=== PATIENT | male | born 1950 | race African-American/Black ===

== ENCOUNTER 2021-01-19 21:35 | Inpatient (IN) | payer MEDICARE, OTHER ==
[~2021-01-19] VITALS: Ht 180.3 cm; Wt 70.3 kg
[~2021-01-19 21:35] MED LIST: ASPI-867 PO; ATOR20TA65 PO; CARV12.545 PO; CLOP75TA33 PO; HYDR-3512 PO; HYDR500C PO; LISI20TA31 PO
[2021-01-19] MEDS ORDERED: SODIUM CHLORIDE 0.9% 1,000 ML IV ONE (22:00)
[2021-01-19 23:05] LABS: CHLORIDE 97 mEq/L (98-107)
[2021-01-20 00:04] LABS: HEMOGLOBIN. 7.2 g/dL (14.0-18.0); MEAN CORPUSCULAR HEMOGLOBIN 29.5 pg (28.0-32.0); MEAN PLATELET VOLUME 10.6 fl (7.4-10.4); RED BLOOD CELL COUNT 2.44 mill/uL (4.7-6.1); RED CELL DISTRIBUTION WIDTH 17.4 % (11.6-14.6)
[2021-01-20 00:24] LABS: PLATELET 7 x1000/uL (130-400)
[2021-01-20] MEDS ORDERED: PANTOPRAZOLE SODIUM 40 MG/VIAL IV ONE (00:30)
[2021-01-20] MEDS ORDERED: TRANEXAMIC ACID 1,000 MG/10 ML IV ONE (00:45)
[2021-01-20 01:23] LABS: INR 1.1; PROTHROMBIN TIME 11.9 sec (9.6-11.0)
[2021-01-20] MEDS ORDERED: IOHEXOL-300 100 ML BOTTLE ONE (01:42)
[2021-01-20 01:56] LABS: PLATELET ESTIMATE MARKEDLY DECREASED
[2021-01-20] MEDS ORDERED: ONDANSETRON HCL 4MG/2ML INJ IV PRN ×2 (08:15→13:30)
[2021-01-20] MEDS ORDERED: POTASSIUM CHLORIDE INJ 40 MEQ in DEXT 5% WATER 250 ML IV ONE (09:00)
[2021-01-20 10:01] LABS: HEMATOCRIT. 22.7 % (42.0-52.0); HEMOGLOBIN. 7.6 g/dL (14.0-18.0); MEAN CORPUSCULAR HEMOGLOBIN 30.1 pg (28.0-32.0); MEAN CORPUSCULAR VOLUME 90.2 fL (80.0-94.0); MEAN PLATELET VOLUME 9.4 fl (7.4-10.4); RED BLOOD CELL COUNT 2.52 mill/uL (4.7-6.1); RED CELL DISTRIBUTION WIDTH 17.2 % (11.6-14.6)
[2021-01-20] MEDS: PANTOPRAZOLE SODIUM 40 MG/VIAL IV SCH ×2 (10:01→21:41)
[2021-01-20] MEDS: SODIUM CHLORIDE 0.9% 1,000 ML IV SCH ×2 (10:01→21:35)
[2021-01-20 10:06] LABS: PLATELET 11 x1000/uL (130-400)
[2021-01-20 11:15] VITALS: BP 117/70
[2021-01-20 11:39] LABS: NUCLEATED RED BLOOD CELLS 2 /100 WBC
[2021-01-20 11:44] LABS: PLATELET ESTIMATE MARKEDLY DECREASED
[2021-01-20 12:00] VITALS: BP 117/70
[2021-01-20] MEDS ORDERED: INFLUENZA VACCINE 05/PF 0.5 ML SYRINGE IM ONE (14:15)
[2021-01-20 14:21] LABS: TOTAL IRON BINDING CAPACITY 150 ug/dL (250-450)
[2021-01-20] MEDS ORDERED: METRONIDAZOLE 500 MG PREMIX 100 ML IV SCH (14:30)
[2021-01-20 14:37] LABS: FOLIC ACID (FOLATE) SERUM 9.5 ng/mL (>5.38)
[2021-01-20] MEDS: METRONIDAZOLE 500MG TABLET PO SCH ×2 (14:47→21:43)
[2021-01-20 16:00] VITALS: BP 124/62
[2021-01-20] MEDS: CEFEPIME 1,000 MG in DEXTROSE 5% WATER 50 ML IV SCH (16:09)
[2021-01-20] MEDS ORDERED: PANTOPRAZOLE SODIUM 40 MG/VIAL IV SCH (17:00)
[2021-01-20 20:00] VITALS: BP 100/75
[2021-01-21] VITALS (8 sets, daily range): BP systolic 98–133; BP diastolic 54–78
[2021-01-21] MEDS: METRONIDAZOLE 500MG TABLET PO SCH ×3 (06:00→21:14)
[2021-01-21 06:15] LABS: CHLORIDE 103 mEq/L (98-107)
[2021-01-21 06:43] LABS: HEMATOCRIT. 22.7 % (42.0-52.0); HEMOGLOBIN. 7.6 g/dL (14.0-18.0); MEAN CORPUSCULAR HEMOGLOBIN 30.2 pg (28.0-32.0); MEAN CORPUSCULAR VOLUME 90.3 fL (80.0-94.0); MEAN PLATELET VOLUME 8.7 fl (7.4-10.4); RED BLOOD CELL COUNT 2.51 mill/uL (4.7-6.1)
[2021-01-21] MEDS: IPRATROPIUM/ALBUTEROL 0.5-3(2.5)MG/3ML NEB HHN SCH ×4 (07:39→21:08)
[2021-01-21] MEDS: TAMSULOSIN HCL 0.4MG SR CAPSULE PO SCH (09:00)
[2021-01-21] MEDS: CEFEPIME 1,000 MG in DEXTROSE 5% WATER 50 ML IV SCH ×2 (09:11→17:08)
[2021-01-21] MEDS: PANTOPRAZOLE SODIUM 40 MG/VIAL IV SCH ×2 (09:12→21:14)
[2021-01-21 10:00] LABS: PLATELET ESTIMATE MARKEDLY DECREASED
[2021-01-21 10:01] LABS: PLATELET 28 x1000/uL (130-400)
[2021-01-21 12:40] LABS: CLARITY URINE CLEAR (CLEAR); COLOR URINE YELLOW (YELLOW); KETONES URINE NEGATIVE (NEGATIVE); LEUKOCYTE ESTERASE URINE NEGATIVE (NEGATIVE); NITRITE URINE NEGATIVE (NEGATIVE); OCCULT BLOOD URINE NEGATIVE (NEGATIVE); PH URINE 5.5 (4.5-8.0); PROTEIN URINE 1+ (NEGATIVE); UROBILINOGEN URINE 0.2 E.U./dL (0.2-1.0)
[2021-01-21] MEDS: SODIUM CHLORIDE 0.9% 1,000 ML IV SCH (14:16)
[2021-01-21] MEDS ORDERED: DIATR MEGLU/DIATRIZOATE SOLN 30ML PO SCH (16:00)
[2021-01-21] MEDS ORDERED: DIGOXIN 500MCG/2ML AMP IV PRN (18:30)
[2021-01-21] MEDS ORDERED: IOHEXOL-300 100 ML BOTTLE ONE (23:26)
[2021-01-22] VITALS (20 sets, daily range): BP systolic 97–125; BP diastolic 59–97
[2021-01-22] MEDS: IPRATROPIUM/ALBUTEROL 0.5-3(2.5)MG/3ML NEB HHN SCH ×7 (00:42→20:26)
[2021-01-22] MEDS ORDERED: DILTIAZEM HCL 125 MG in DEXT 5% WATER 100 ML IV PRN ×2 (01:00→12:36)
[2021-01-22] MEDS: SODIUM CHLORIDE 0.9% 1,000 ML IV SCH ×2 (02:09→13:24)
[2021-01-22] MEDS: CEFEPIME 1,000 MG in DEXTROSE 5% WATER 50 ML IV SCH ×2 (05:04→17:01)
[2021-01-22] MEDS: METRONIDAZOLE 500MG TABLET PO SCH ×3 (05:07→21:35)
[2021-01-22 06:49] LABS: HEMATOCRIT. 24.7 % (42.0-52.0); HEMOGLOBIN. 8.4 g/dL (14.0-18.0); MEAN CORPUSCULAR HEMOGLOBIN 29.9 pg (28.0-32.0); MEAN CORPUSCULAR VOLUME 88.6 fL (80.0-94.0); MEAN PLATELET VOLUME 9.4 fl (7.4-10.4); RED BLOOD CELL COUNT 2.79 mill/uL (4.7-6.1); RED CELL DISTRIBUTION WIDTH 16.5 % (11.6-14.6)
[2021-01-22 06:50] LABS: CHLORIDE 107 mEq/L (98-107)
[2021-01-22 08:13] LABS: PLATELET 18 x1000/uL (130-400)
[2021-01-22] MEDS: PANTOPRAZOLE SODIUM 40 MG/VIAL IV SCH ×2 (08:24→21:35)
[2021-01-22] MEDS: TAMSULOSIN HCL 0.4MG SR CAPSULE PO SCH (08:24)
[2021-01-22] MEDS ORDERED: POTASSIUM CHLORIDE INJ 40 MEQ in DEXT 5% WATER 250 ML IV NR (09:00)
[2021-01-22 10:10] LABS: NUCLEATED RED BLOOD CELLS 1 /100 WBC
[2021-01-22 10:11] LABS: PLATELET ESTIMATE MARKEDLY DECREASED
[2021-01-22] MEDS: AMIODARONE HCL 900 MG in DEXT 5% WATER 500 ML IV PRN (15:54)
[2021-01-22] MEDS ORDERED: AMIODARONE HCL 150 MG in DEXT 5% WATER 97 ML IV NR (16:00)
[2021-01-23] VITALS (12 sets, daily range): BP systolic 105–138; BP diastolic 58–76
[2021-01-23] MEDS: IPRATROPIUM/ALBUTEROL 0.5-3(2.5)MG/3ML NEB HHN SCH ×5 (01:52→19:51)
[2021-01-23] MEDS: SODIUM CHLORIDE 0.9% 1,000 ML IV SCH ×2 (02:54→16:10)
[2021-01-23] MEDS: METRONIDAZOLE 500MG TABLET PO SCH ×3 (05:01→21:44)
[2021-01-23] MEDS: CEFEPIME 1,000 MG in DEXTROSE 5% WATER 50 ML IV SCH ×2 (05:01→17:04)
[2021-01-23 07:46] LABS: CHLORIDE 110 mEq/L (98-107)
[2021-01-23 08:13] LABS: HEMATOCRIT. 22.5 % (42.0-52.0); HEMOGLOBIN. 7.6 g/dL (14.0-18.0); MEAN CORPUSCULAR HEMOGLOBIN 29.9 pg (28.0-32.0); MEAN CORPUSCULAR VOLUME 88.9 fL (80.0-94.0); MEAN PLATELET VOLUME 8.5 fl (7.4-10.4); RED BLOOD CELL COUNT 2.54 mill/uL (4.7-6.1); RED CELL DISTRIBUTION WIDTH 16.5 % (11.6-14.6)
[2021-01-23] MEDS: PANTOPRAZOLE SODIUM 40 MG/VIAL IV SCH ×2 (08:52→21:44)
[2021-01-23] MEDS: TAMSULOSIN HCL 0.4MG SR CAPSULE PO SCH (08:52)
[2021-01-23] MEDS ORDERED: POTASSIUM CHLORIDE 20MEQ TABLET SR PO SCH (10:00)
[2021-01-23 11:24] LABS: PLATELET ESTIMATE MARKEDLY DECREASED
[2021-01-23 11:25] LABS: PLATELET 18 x1000/uL (130-400)
[2021-01-23] MEDS: AMIODARONE HCL 900 MG in DEXT 5% WATER 500 ML IV PRN (14:39)
[2021-01-24] VITALS (17 sets, daily range): BP systolic 104–128; BP diastolic 43–86
[2021-01-24] MEDS: IPRATROPIUM/ALBUTEROL 0.5-3(2.5)MG/3ML NEB HHN SCH ×6 (00:04→16:00)
[2021-01-24] MEDS: SODIUM CHLORIDE 0.9% 1,000 ML IV SCH ×2 (05:16→18:55)
[2021-01-24] MEDS: METRONIDAZOLE 500MG TABLET PO SCH ×3 (05:16→21:13)
[2021-01-24] MEDS: CEFEPIME 1,000 MG in DEXTROSE 5% WATER 50 ML IV SCH ×2 (05:16→17:38)
[2021-01-24 05:51] LABS: INR 1.2; PARTIAL THROMBOPLASTIN TIME 30.7 sec (23.4-31.0); PROTHROMBIN TIME 12.3 sec (9.6-11.0)
[2021-01-24 05:58] LABS: CHLORIDE 112 mEq/L (98-107)
[2021-01-24 06:14] LABS: PHOSPHORUS 2.1 mg/dL (2.5-4.9)
[2021-01-24 06:18] LABS: HEMATOCRIT. 23.4 % (42.0-52.0); HEMOGLOBIN. 7.7 g/dL (14.0-18.0); MEAN CORPUSCULAR HEMOGLOBIN 29.3 pg (28.0-32.0); MEAN CORPUSCULAR VOLUME 88.5 fL (80.0-94.0); MEAN PLATELET VOLUME 9.1 fl (7.4-10.4); RED BLOOD CELL COUNT 2.64 mill/uL (4.7-6.1); RED CELL DISTRIBUTION WIDTH 16.9 % (11.6-14.6)
[2021-01-24] MEDS: PANTOPRAZOLE SODIUM 40 MG/VIAL IV SCH ×2 (08:46→21:13)
[2021-01-24] MEDS: TAMSULOSIN HCL 0.4MG SR CAPSULE PO SCH (08:46)
[2021-01-24] MEDS ORDERED: POTASSIUM PHOS,M-BASIC-D-BASIC 10 MMOL in DEXT 5% WATER 246.6667 ML IV SCH (14:00)
[2021-01-24 15:52] LABS: PLATELET 14 x1000/uL (130-400); PLATELET ESTIMATE MARKEDLY DECREASED
[2021-01-24] MEDS ORDERED: HYDROCODONE/ACETAMINOPHEN 10/325MG TABLET PO PRN (20:45)
[2021-01-24] MEDS ORDERED: NALOXONE HCL 0.4MG/ML VIAL IV PRN (21:00)
[2021-01-24] MEDS ORDERED: PHYTONADIONE 10MG/ML AMP SUBCUT SCH (21:00)
[2021-01-24] MEDS: TOTAL PARENTERAL NUTRITION 1,800 ML IV SCH (21:12)
[2021-01-24] MEDS: AMIODARONE HCL 900 MG in DEXT 5% WATER 500 ML IV PRN (21:50)
[2021-01-25] VITALS (21 sets, daily range): BP systolic 106–129; BP diastolic 60–76
[2021-01-25] MEDS ORDERED: BLOOD SUGAR DIAGNOSTIC STRIP TEST SCH
[2021-01-25] MEDS ORDERED: DEXTROSE 50% WATER 50ML SYRINGE IV PRN (04:30)
[2021-01-25] MEDS: METRONIDAZOLE 500MG TABLET PO SCH ×3 (05:22→21:23)
[2021-01-25] MEDS: CEFEPIME 1,000 MG in DEXTROSE 5% WATER 50 ML IV SCH (05:22)
[2021-01-25] MEDS: INSULIN LISPRO 100 UNITS/ML SUBCUT SCH ×3 (05:23→18:11)
[2021-01-25 05:32] LABS: HEMATOCRIT. 21.7 % (42.0-52.0); HEMOGLOBIN. 7.1 g/dL (14.0-18.0); MEAN CORPUSCULAR HEMOGLOBIN 29.8 pg (28.0-32.0); MEAN CORPUSCULAR VOLUME 90.8 fL (80.0-94.0); MEAN PLATELET VOLUME 9.2 fl (7.4-10.4); RED BLOOD CELL COUNT 2.39 mill/uL (4.7-6.1); RED CELL DISTRIBUTION WIDTH 17.8 % (11.6-14.6)
[2021-01-25 06:28] LABS: CHLORIDE 111 mEq/L (98-107)
[2021-01-25 06:38] LABS: PLATELET 12 x1000/uL (130-400)
[2021-01-25] MEDS: BLOOD SUGAR DIAGNOSTIC STRIP TEST SCH ×4 (07:30→21:23)
[2021-01-25] MEDS: IPRATROPIUM/ALBUTEROL 0.5-3(2.5)MG/3ML NEB HHN SCH ×3 (08:05→15:27)
[2021-01-25] MEDS: PANTOPRAZOLE SODIUM 40 MG/VIAL IV SCH ×2 (09:54→21:22)
[2021-01-25] MEDS: TAMSULOSIN HCL 0.4MG SR CAPSULE PO SCH (09:54)
[2021-01-25 14:14] LABS: NUCLEATED RED BLOOD CELLS 1 /100 WBC; PLATELET ESTIMATE MARKEDLY DECREASED
[2021-01-25] MEDS: FAT EMULSIONS 500 ML IV SCH (21:23)
[2021-01-25] MEDS: TOTAL PARENTERAL NUTRITION 1,800 ML IV SCH (21:26)
[2021-01-25 23:07] LABS: HEMATOCRIT 24.7 % (42.0-52.0); HEMOGLOBIN 8.3 g/dL (14.0-18.0)
[2021-01-25 23:18] LABS: INR 1.1; PROTHROMBIN TIME 11.9 sec (9.6-11.0)
[2021-01-26] VITALS (13 sets, daily range): BP systolic 93–130; BP diastolic 58–96
[2021-01-26] MEDS: INSULIN LISPRO 100 UNITS/ML SUBCUT SCH ×4 (00:24→18:15)
[2021-01-26] MEDS: AMIODARONE HCL 900 MG in DEXT 5% WATER 500 ML IV PRN (02:38)
[2021-01-26] MEDS: CEFEPIME 1,000 MG in DEXTROSE 5% WATER 50 ML IV SCH ×2 (05:23→18:14)
[2021-01-26] MEDS: METRONIDAZOLE 500MG TABLET PO SCH ×3 (05:23→20:45)
[2021-01-26] MEDS: BLOOD SUGAR DIAGNOSTIC STRIP TEST SCH ×3 (05:24→18:00)
[2021-01-26 05:33] LABS: CHLORIDE 109 mEq/L (98-107)
[2021-01-26] MEDS: IPRATROPIUM/ALBUTEROL 0.5-3(2.5)MG/3ML NEB HHN SCH ×4 (07:50→20:58)
[2021-01-26 08:33] LABS: HEMATOCRIT. 24.4 % (42.0-52.0); HEMOGLOBIN. 8.1 g/dL (14.0-18.0); MEAN CORPUSCULAR HEMOGLOBIN 29.9 pg (28.0-32.0); MEAN CORPUSCULAR VOLUME 90.5 fL (80.0-94.0); MEAN PLATELET VOLUME 7.9 fl (7.4-10.4); RED BLOOD CELL COUNT 2.69 mill/uL (4.7-6.1); RED CELL DISTRIBUTION WIDTH 17.1 % (11.6-14.6)
[2021-01-26 08:44] LABS: PLATELET 35 x1000/uL (130-400)
[2021-01-26] MEDS: PANTOPRAZOLE SODIUM 40 MG/VIAL IV SCH ×2 (09:27→20:45)
[2021-01-26] MEDS: TAMSULOSIN HCL 0.4MG SR CAPSULE PO SCH (09:27)
[2021-01-26] MEDS: INSULIN GLARGINE UD 100 UNITS/ML SYR SUBCUT SCH ×2 (10:52→20:47)
[2021-01-26] MEDS ORDERED: BISACODYL 5MG TABLET PO SCH (11:45)
[2021-01-26] MEDS ORDERED: LACTULOSE 20G/30ML UDC PO SCH (11:45)
[2021-01-26 14:06] LABS: PLATELET ESTIMATE MARKEDLY DECREASED
[2021-01-26] MEDS: TOTAL PARENTERAL NUTRITION 1,800 ML IV SCH (20:47)
[2021-01-27] VITALS (17 sets, daily range): BP systolic 98–118; BP diastolic 59–77
[2021-01-27] MEDS: BLOOD SUGAR DIAGNOSTIC STRIP TEST SCH ×4 (00:03→17:49)
[2021-01-27] MEDS: INSULIN LISPRO 100 UNITS/ML SUBCUT SCH ×4 (00:04→18:00)
[2021-01-27] MEDS: IPRATROPIUM/ALBUTEROL 0.5-3(2.5)MG/3ML NEB HHN SCH ×6 (00:46→21:00)
[2021-01-27] MEDS: METRONIDAZOLE 500MG TABLET PO SCH ×3 (05:14→21:06)
[2021-01-27] MEDS: AMIODARONE HCL 900 MG in DEXT 5% WATER 500 ML IV PRN (05:14)
[2021-01-27] MEDS: CEFEPIME 1,000 MG in DEXTROSE 5% WATER 50 ML IV SCH ×2 (05:14→17:59)
[2021-01-27 06:20] LABS: HEMATOCRIT. 23.9 % (42.0-52.0); MEAN CORPUSCULAR VOLUME 89.3 fL (80.0-94.0); MEAN PLATELET VOLUME 8.9 fl (7.4-10.4); RED BLOOD CELL COUNT 2.68 mill/uL (4.7-6.1); RED CELL DISTRIBUTION WIDTH 17.3 % (11.6-14.6)
[2021-01-27 06:38] LABS: PLATELET 12 x1000/uL (130-400)
[2021-01-27 06:46] LABS: CHLORIDE 107 mEq/L (98-107)
[2021-01-27] MEDS: PANTOPRAZOLE SODIUM 40 MG/VIAL IV SCH ×2 (08:42→21:07)
[2021-01-27] MEDS: TAMSULOSIN HCL 0.4MG SR CAPSULE PO SCH (08:42)
[2021-01-27] MEDS: INSULIN GLARGINE UD 100 UNITS/ML SYR SUBCUT SCH ×2 (09:50→21:09)
[2021-01-27 10:40] LABS: NUCLEATED RED BLOOD CELLS 1 /100 WBC; PLATELET ESTIMATE MARKEDLY DECREASED
[2021-01-27] MEDS ORDERED: SORBITOL 70% SOLN 30ML PO NR (12:00)
[2021-01-27 20:35] LABS: HEMATOCRIT 23.8 % (42.0-52.0); HEMOGLOBIN 7.8 g/dL (14.0-18.0)
[2021-01-27 20:43] LABS: INR 1.1; PROTHROMBIN TIME 11.3 sec (9.6-11.0)
[2021-01-27] MEDS: TOTAL PARENTERAL NUTRITION 1,800 ML IV SCH (21:09)
[2021-01-27] MEDS: FAT EMULSIONS 500 ML IV SCH (21:10)
[2021-01-28] VITALS (15 sets, daily range): BP systolic 104–118; BP diastolic 60–72
[2021-01-28] MEDS: BLOOD SUGAR DIAGNOSTIC STRIP TEST SCH ×4 (00:24→17:52)
[2021-01-28] MEDS: INSULIN LISPRO 100 UNITS/ML SUBCUT SCH ×4 (00:25→18:08)
[2021-01-28] MEDS: IPRATROPIUM/ALBUTEROL 0.5-3(2.5)MG/3ML NEB HHN SCH ×6 (00:41→21:04)
[2021-01-28 07:26] LABS: HEMATOCRIT. 24.7 % (42.0-52.0); HEMOGLOBIN. 7.4 g/dL (14.0-18.0); MEAN CORPUSCULAR HEMOGLOBIN 30.5 pg (28.0-32.0); MEAN CORPUSCULAR VOLUME 102.1 fL (80.0-94.0); MEAN PLATELET VOLUME 8.7 fl (7.4-10.4); RED BLOOD CELL COUNT 2.42 mill/uL (4.7-6.1); RED CELL DISTRIBUTION WIDTH 19.8 % (11.6-14.6)
[2021-01-28 07:45] LABS: PLATELET 14 x1000/uL (130-400)
[2021-01-28] MEDS ORDERED: BLOOD SUGAR DIAGNOSTIC STRIP TEST SCH (09:00)
[2021-01-28 09:41] LABS: CHLORIDE 103 mEq/L (98-107)
[2021-01-28] MEDS: PANTOPRAZOLE SODIUM 40 MG/VIAL IV SCH ×2 (09:59→21:22)
[2021-01-28] MEDS: TAMSULOSIN HCL 0.4MG SR CAPSULE PO SCH (10:00)
[2021-01-28] MEDS: INSULIN GLARGINE UD 100 UNITS/ML SYR SUBCUT SCH ×2 (10:01→21:20)
[2021-01-28 13:57] LABS: PLATELET ESTIMATE MARKEDLY DECREASED
[2021-01-28] MEDS ORDERED: BISACODYL 10MG SUPP PR NR (15:30)
[2021-01-28] MEDS: METOCLOPRAMIDE HCL 10MG/2ML VIAL IV SCH ×2 (16:26→18:07)
[2021-01-28] MEDS: LACTULOSE 20G/30ML UDC PO SCH ×2 (16:26→21:22)
[2021-01-28] MEDS: ASCORBIC ACID 500 MG TABLET PO SCH (16:29)
[2021-01-28] MEDS: ZINC SULFATE 220 MG ( 50 ) CAPSULE PO SCH (16:29)
[2021-01-28 20:06] LABS: HEMATOCRIT 23.3 % (42.0-52.0); HEMOGLOBIN 7.8 g/dL (14.0-18.0)
[2021-01-28] MEDS: TOTAL PARENTERAL NUTRITION 1,800 ML IV SCH (21:20)
[2021-01-28] MEDS: AMIODARONE HCL 200 MG TABLET PO SCH (21:22)
[2021-01-29] VITALS (11 sets, daily range): BP systolic 98–125; BP diastolic 31–77
[2021-01-29] MEDS: METOCLOPRAMIDE HCL 10MG/2ML VIAL IV SCH ×4 (00:17→17:45)
[2021-01-29] MEDS: INSULIN LISPRO 100 UNITS/ML SUBCUT SCH ×4 (00:19→17:46)
[2021-01-29] MEDS: BLOOD SUGAR DIAGNOSTIC STRIP TEST SCH ×4 (00:19→17:42)
[2021-01-29] MEDS: IPRATROPIUM/ALBUTEROL 0.5-3(2.5)MG/3ML NEB HHN SCH ×5 (00:21→16:08)
[2021-01-29] MEDS: LACTULOSE 20G/30ML UDC PO SCH ×2 (05:20→13:12)
[2021-01-29 05:50] LABS: CHLORIDE 104 mEq/L (98-107)
[2021-01-29 08:10] LABS: HEMOGLOBIN. 7.6 g/dL (14.0-18.0); MEAN CORPUSCULAR VOLUME 87.9 fL (80.0-94.0); MEAN PLATELET VOLUME 7.2 fl (7.4-10.4); RED BLOOD CELL COUNT 2.61 mill/uL (4.7-6.1); RED CELL DISTRIBUTION WIDTH 16.8 % (11.6-14.6)
[2021-01-29] MEDS: TAMSULOSIN HCL 0.4MG SR CAPSULE PO SCH (09:48)
[2021-01-29] MEDS: ZINC SULFATE 220 MG ( 50 ) CAPSULE PO SCH (09:48)
[2021-01-29] MEDS: PANTOPRAZOLE SODIUM 40 MG/VIAL IV SCH ×2 (09:48→21:07)
[2021-01-29] MEDS: ASCORBIC ACID 500 MG TABLET PO SCH (09:48)
[2021-01-29] MEDS: AMIODARONE HCL 200 MG TABLET PO SCH ×2 (09:49→21:07)
[2021-01-29] MEDS: INSULIN GLARGINE UD 100 UNITS/ML SYR SUBCUT SCH (09:49)
[2021-01-29] MEDS ORDERED: BISACODYL 10MG SUPP PR NR (11:30)
[2021-01-29] MEDS ORDERED: MAGNESIUM CITRATE 300ML SOLUTION PO NR (12:30)
[2021-01-29 13:24] LABS: NUCLEATED RED BLOOD CELLS 1 /100 WBC
[2021-01-29 13:25] LABS: PLATELET ESTIMATE MARKEDLY DECREASED
[2021-01-29 13:26] LABS: PLATELET 21 x1000/uL (130-400)
== END 2021-01-29 18:45 | DRG 871 ==
LOC: ER 21:35 → EDBEDREQSVC 23:21 → EDBEDREQ 23:21 → EDBEDREQTM 23:21 → MICUSO 01-20 00:36 → EDBEDREQDT 01-20 00:40 → EDBEDREQSVC 01-20 00:40 → EDBEDREQTM 01-20 00:40 → 8WST 01-20 11:32 → 5EST 01-22 00:14
PROVIDERS: ADMIT Internal Medicine; ATTEND Internal Medicine
PROC: 30233N1 Transfusion of Nonautologous Red Blood Cells into Peripheral Vein, Percutaneous Approach (ICD-10-PCS; 2021-01-21)
PROC: 02HV33Z Insertion of Infusion Device into Superior Vena Cava, Percutaneous Approach (ICD-10-PCS; principal; 2021-01-24)
PROC: B548ZZA Ultrasonography of Superior Vena Cava, Guidance (ICD-10-PCS; 2021-01-24)
PROC: 30233R1 Transfusion of Nonautologous Platelets into Peripheral Vein, Percutaneous Approach (ICD-10-PCS; 2021-01-25)
DX: A41.9 Sepsis, unspecified organism (principal); K57.91 Diverticulosis of intestine, part unspecified, without perforation or abscess with bleeding; E43 Unspecified severe protein-calorie malnutrition; D61.818 Other pancytopenia; E87.1 Hypo-osmolality and hyponatremia; I50.22 Chronic systolic (congestive) heart failure; K56.600 Partial intestinal obstruction, unspecified as to cause; C92.00 Acute myeloblastic leukemia, not having achieved remission; J98.11 Atelectasis; K91.89 Other postprocedural complications and disorders of digestive system; C93.10 Chronic myelomonocytic leukemia not having achieved remission; D69.59 Other secondary thrombocytopenia; I11.0 Hypertensive heart disease with heart failure; I48.91 Unspecified atrial fibrillation; I49.3 Ventricular premature depolarization; E87.6 Hypokalemia; T45.1X5A Adverse effect of antineoplastic and immunosuppressive drugs, initial encounter; L89.156 Pressure-induced deep tissue damage of sacral region; L89.896 Pressure-induced deep tissue damage of other site; E11.9 Type 2 diabetes mellitus without complications; I25.10 Atherosclerotic heart disease of native coronary artery without angina pectoris; J44.9 Chronic obstructive pulmonary disease, unspecified; Z20.822 Contact with and (suspected) exposure to COVID-19; K52.9 Noninfective gastroenteritis and colitis, unspecified; K37 Unspecified appendicitis; Z87.891 Personal history of nicotine dependence; Z92.21 Personal history of antineoplastic chemotherapy; I25.2 Old myocardial infarction; Z95.810 Presence of automatic (implantable) cardiac defibrillator; Z79.891 Long term (current) use of opiate analgesic; Z79.899 Other long term (current) drug therapy; Z79.82 Long term (current) use of aspirin; Z79.02 Long term (current) use of antithrombotics/antiplatelets; Y92.89 Other specified places as the place of occurrence of the external cause; Z68.21 Body mass index [BMI] 21.0-21.9, adult
CPT/HCPCS: 36415; 36430; 71045; 74018; 74177; 76937; 80048; 80053; 81003; 82040; 82465; 82607; 82728; 82746; 82962; 83036; 83540; 83550; 83605; 83615; 83735; 83880; 84100; 84134; 84145; 84478; 84484; 84550; 85014; 85018; 85025; 85049; 85384; 86850; 86900; 86920; 86945; 87426; 90686; 93005; 93306; 94640; 97162; 97166; 99291; C1725; C1769; C9113; J0282; J0692; J1160; J1815; J2765; J3430; J3480; J3490; J7030; J7060; P9016; P9021; P9034; Q9963; Q9967; A4315; P9036